=== PATIENT | male | born 1965 | race Two or more races ===

== ENCOUNTER 2020-04-22 15:11 | Emergency (ER) | payer SELFPAY ==
[~2020-04-22] VITALS: Ht 170.2 cm; Wt 96.6 kg
[2020-04-22 15:33] VITALS: BP 132/68
--- NOTE | 2020-04-22 15:40 | NUR ---
SEEN AND EXAMINED BY .
--- NOTE | 2020-04-22 15:50 | NUR ---
MANNEQUIN MAKER AT BEDSIDE FOR XRAY.
--- NOTE | 2020-04-22 17:16 | NUR ---
KNEEE IMMOBILIZER APPLIED BY AIR TWIST OPERATOR.
--- NOTE | 2020-04-22 17:17 | NUR ---
Patient given written and verbal discharge instructions. Patient verbalizes understanding of instructions. Patient is ambulatory with steady gait. Refuses offer of penitentiary placement. Patient given list of available shelters in surrounding area.
== END 2020-04-22 17:19 | disposition home or self-care (01) ==
LOC: ER 15:15
DX: S83.8X2A Sprain of other specified parts of left knee, initial encounter (principal); M25.462 Effusion, left knee; F17.200 Nicotine dependence, unspecified, uncomplicated; Z60.2 Problems related to living alone; X58.XXXA Exposure to other specified factors, initial encounter; Y93.89 Activity, other specified; Y92.89 Other specified places as the place of occurrence of the external cause; Y99.8 Other external cause status
CPT/HCPCS: 73564-TC